=== PATIENT | female | born 1950 | race Caucasian/White ===

== ENCOUNTER 2018-10-14 23:19 | Emergency (ER) | payer MEDICARE, BC ==
[~2018-10-14] VITALS: Ht 162.6 cm; Wt 104.5 kg
[2018-10-14] MEDS ORDERED: AMLODIPINE BESY10 MG PO (23:31)
[2018-10-14] MEDS ORDERED: PRADAXA 150MG150 MG PO (23:31)
[2018-10-14] MEDS ORDERED: HYDROCHLOROTHIA1 T15 PO (23:31)
[2018-10-14] MEDS ORDERED: SOTALOL HYDROCH80 MG PO (23:32)
[2018-10-14] MEDS ORDERED: APRESOLINE 25MG25 MG PO (23:32)
[2018-10-14] MEDS ORDERED: VITAMIN C PURE500 MG PO (23:32)
[2018-10-14] MEDS ORDERED: ASPIRIN E.C. 8181 MG (23:33)
[2018-10-14] MEDS ORDERED: GOOD NEIGHBOR200 M1 PO (23:33)
[2018-10-14 23:59] LABS: HEMATOCRIT 45.7 % (37.0-47.0); HEMOGLOBIN 15.6 g/dL (12.5-16.0); MEAN CELL VOLUME 91 fl (78-100); MEAN CORPUSCULAR HEMOGLOBIN 31 pg (27-31); MEAN CORPUSCULAR HGB CONC 34 g/dL (33-37); MEAN PLATELET VOLUME 10.6 fl (7.4-10.4); PLATELET COUNT 320 K/mm3 (130-400); RED BLOOD COUNT 5.04 M/mm3 (4.10-5.30); RED CELL DISTRIBUTION WIDTH 13.6 % (11.5-14.5); WHITE BLOOD COUNT 17.5 K/mm3 (4.8-10.8)
[2018-10-15 00:12] LABS: LYMPHOCYTE 6 % (20-51); MONOCYTE 2 % (3-10); NEUTROPHILS 92 % (42-75)
[2018-10-15 00:17] LABS: ALBUMIN 4.1 g/dL (3.5-5.0); CALCIUM 9.7 mg/dL (8.4-10.2); POTASSIUM 3.5 mmol/L (3.6-5.0); TOTAL PROTEIN 6.8 g/dL (6.3-8.2)
[2018-10-15 00:18] LABS: TOTAL BILIRUBIN 0.5 mg/dL (0.2-1.3)
[2018-10-15 01:30] VITALS: BP 160/80
== END 2018-10-15 01:30 | disposition home or self-care (01) ==
LOC: ED 23:19
PROVIDERS: Nurse Practitioner Family
DX: S42.302A Unspecified fracture of shaft of humerus, left arm, initial encounter for closed fracture (principal); W01.0XXA Fall on same level from slipping, tripping and stumbling without subsequent striking against object, initial encounter; Y92.009 Unspecified place in unspecified non-institutional (private) residence as the place of occurrence of the external cause; I48.91 Unspecified atrial fibrillation; F17.210 Nicotine dependence, cigarettes, uncomplicated; I10 Essential (primary) hypertension
CPT/HCPCS: J2405; J3010; J7030

== ENCOUNTER 2018-10-20 13:12 | Inpatient (IN) | payer MEDICARE, BC ==
[~2018-10-20] VITALS: Ht 167.6 cm; Wt 100.4 kg
[~2018-10-20 13:12] MED LIST: AMLODIPINE BESY10 MG PO; APRESOLINE 25MG25 MG PO; ASPIRIN E.C. 8181 MG; GOOD NEIGHBOR200 M1 PO; HYDROCHLOROTHIA1 T15 PO; PRADAXA 150MG150 MG PO; SOTALOL HYDROCH80 MG PO; VITAMIN C PURE500 MG PO
[2018-10-20 16:12] VITALS: BP 138/72
[2018-10-20 18:46] VITALS: BP 120/56
[2018-10-21 02:56] LABS: URINE APPEARANCE CLOUDY; URINE BILIRUBIN NEGATIVE (NEGATIVE); URINE COLOR YELLOW; URINE GLUCOSE NEGATIVE (NEGATIVE); URINE KETONE NEGATIVE (NEGATIVE); URINE NITRATE NEGATIVE (NEGATIVE); URINE PROTEIN(semi-quant) TRACE mg/dL (NEGATIVE); URINE UROBILINOGEN NORMAL (NORMAL)
[2018-10-21 02:57] LABS: URINE BLOOD TRACE (NEGATIVE); URINE LEUKOCYTE ESTERASE NEGATIVE (NEGATIVE); URINE WBC 0-1 /hpf (0-3)
[2018-10-21 06:05] LABS: EOS # 0.2 (0.04-0.40); EOS % 1.6 % (1.0-5.0); HEMATOCRIT 38.1 % (37.0-47.0); HEMOGLOBIN 12.8 g/dL (12.5-16.0); LYMPH# 1.5 (1.50-4.00); MEAN CELL VOLUME 92 fl (78-100); MEAN CORPUSCULAR HEMOGLOBIN 31 pg (27-31); MEAN CORPUSCULAR HGB CONC 34 g/dL (33-37); MEAN PLATELET VOLUME 10.4 fl (7.4-10.4); NEU # 6.8 (1.40-6.50); PLATELET COUNT 312 K/mm3 (130-400); RED BLOOD COUNT 4.14 M/mm3 (4.10-5.30); RED CELL DISTRIBUTION WIDTH 13.6 % (11.5-14.5); WHITE BLOOD COUNT 9.5 K/mm3 (4.8-10.8)
[2018-10-21 06:11] VITALS: BP 125/74
[2018-10-21 06:14] LABS: ALBUMIN 3.3 g/dL (3.5-5.0); CALCIUM 8.7 mg/dL (8.4-10.2); POTASSIUM 3.7 mmol/L (3.6-5.0); TOTAL BILIRUBIN 0.8 mg/dL (0.2-1.3); TOTAL PROTEIN 5.8 g/dL (6.3-8.2)
[2018-10-21 18:41] VITALS: BP 154/58
[2018-10-22 06:32] VITALS: BP 120/65
[2018-10-22 18:59] VITALS: BP 153/72
[2018-10-23 06:27] VITALS: BP 155/75
[2018-10-23 18:26] VITALS: BP 156/92
[2018-10-24 06:22] VITALS: BP 122/76
[2018-10-24 18:48] VITALS: BP 115/71
[2018-10-25 06:23] VITALS: BP 152/62
[2018-10-25 18:35] VITALS: BP 121/67
[2018-10-26 06:14] VITALS: BP 157/90
[2018-10-26 19:00] VITALS: BP 142/61
[2018-10-27 06:34] VITALS: BP 154/78
[2018-10-27 19:00] VITALS: BP 145/75
[2018-10-28 06:23] VITALS: BP 150/93
[2018-10-28] MEDS ORDERED: IPRATROPIUM BROM3 M1 IH (17:18)
[2018-10-28] MEDS ORDERED: ACETAMINOPHEN-H1 TA2 PO (17:19)
[2018-10-28 19:00] VITALS: BP 126/53
[2018-10-29 06:14] VITALS: BP 147/60
[2018-10-29] MEDS ORDERED: MIRALAX17 GM PO (07:58)
[2018-10-29] MEDS ORDERED: SENOKOTXTRA17.2 MG PO (07:58)
[2018-10-29] MEDS ORDERED: NORCO 325 MG-51 TA1 PO (08:01)
[2018-10-29] MEDS ORDERED: ALBUTEROL2.5 MG/3 M IH (08:01)
== END 2018-10-29 09:28 | disposition home or self-care (01) | DRG 948 ==
LOC: MED/SURG 13:12
PROVIDERS: Physician Assistant; ADMIT Nurse Practitioner Primary Care
DX: R53.81 Other malaise (principal); S42.342D Displaced spiral fracture of shaft of humerus, left arm, subsequent encounter for fracture with routine healing; Z66 Do not resuscitate; F17.210 Nicotine dependence, cigarettes, uncomplicated; W18.30XD Fall on same level, unspecified, subsequent encounter; I10 Essential (primary) hypertension; I48.0 Paroxysmal atrial fibrillation; E27.8 Other specified disorders of adrenal gland

== ENCOUNTER 2019-03-08 10:02 | Emergency (ER) | payer MEDICARE, BC ==
[~2019-03-08] VITALS: Ht 162.6 cm; Wt 90.9 kg
[~2019-03-08 10:02] MED LIST changes: +ACETAMINOPHEN-H1 TA2 PO; +ALBUTEROL2.5 MG/3 M IH; +IPRATROPIUM BROM3 M1 IH; +MIRALAX17 GM PO; +NORCO 325 MG-51 TA1 PO; +SENOKOTXTRA17.2 MG PO
[2019-03-08 11:24] LABS: HEMATOCRIT 44.3 % (37.0-47.0); HEMOGLOBIN 14.9 g/dL (12.5-16.0); MEAN CELL VOLUME 87 fl (78-100); MEAN CORPUSCULAR HEMOGLOBIN 29 pg (27-31); MEAN CORPUSCULAR HGB CONC 34 g/dL (33-37); MEAN PLATELET VOLUME 10.1 fl (7.4-10.4); PLATELET COUNT 244 K/mm3 (130-400); RED BLOOD COUNT 5.07 M/mm3 (4.10-5.30); RED CELL DISTRIBUTION WIDTH 14.5 % (11.5-14.5); WHITE BLOOD COUNT 6.5 K/mm3 (4.8-10.8)
[2019-03-08 11:34] LABS: CALCIUM 8.9 mg/dL (8.4-10.2); POTASSIUM 3.7 mmol/L (3.6-5.0)
[2019-03-08 11:45] LABS: LYMPHOCYTE 24 % (20-51); MONOCYTE 11 % (3-10); NEUTROPHILS 64 % (42-75)
[2019-03-08 14:36] VITALS: BP 156/71
[2019-03-08] MEDS ORDERED: NORVASC 10MG10 MG PO (14:43)
[2019-03-08] MEDS ORDERED: POTASSIUM CHLO10 ME7 (14:43)
== END 2019-03-08 14:36 | disposition home or self-care (01) ==
LOC: ED 10:02
PROVIDERS: Family Medicine
DX: K59.00 Constipation, unspecified (principal); E87.1 Hypo-osmolality and hyponatremia; I48.91 Unspecified atrial fibrillation; I10 Essential (primary) hypertension; J44.9 Chronic obstructive pulmonary disease, unspecified; Z85.858 Personal history of malignant neoplasm of other endocrine glands

== ENCOUNTER → 2019-03-16 | Outpatient (CLI) | payer MEDICARE, BC ==
[~2019-03-16] VITALS: Ht 162.6 cm; Wt 86.8 kg
[~2019-03-16] MED LIST changes: +NORVASC 10MG10 MG PO; +POTASSIUM CHLO10 ME7
[2019-03-16 12:03] VITALS: BP 114/46
--- NOTE | 2019-03-16 13:07 | NUR ---
STOOL COLLECTED FOR O&P AND SENT WITH PT. PT WILL DROP OFF AT CLINIC LAB.
[2019-03-16 13:19] VITALS: BP 122/60
== END ==
LOC: AMSURD 11:16
DX: I95.9 Hypotension, unspecified (principal); R19.7 Diarrhea, unspecified
CPT/HCPCS: J7030

== ENCOUNTER → 2019-03-18 | Outpatient (CLI) | payer MEDICARE, BC ==
[2019-03-16 13:19] VITALS: BP 122/60
[2019-03-18 10:24] LABS: CALCIUM 9.3 mg/dL (8.4-10.2); POTASSIUM 4.4 mmol/L (3.5-5.1)
== END ==
LOC: LAB 09:48
PROVIDERS: Physician Assistant Medical
DX: E87.1 Hypo-osmolality and hyponatremia (principal)

== ENCOUNTER 2019-03-28 11:25 | Inpatient (IN) | payer MEDICARE, BC ==
[~2019-03-28] VITALS: Ht 165.1 cm; Wt 89.2 kg
[~2019-03-28 11:25] MED LIST changes: +ACETAMINOPHEN325 M1 PO; +ACIDOPHILUS PR0.5 MG PO; +AUGMENTIN 875-1 EAC1 PO; +CHILDREN'S ASPI81 M1 PO; +LISINOPRIL40 MG PO; +NATURAL VITAM1000 MG PO; +OXYCODONE HYDROC5 M1 PO; -POTASSIUM CHLO10 ME7; +POTASSIUM CHLO10 ME7 PO; +PREDNISONE 5MG5 MG PO; +ZOFRAN4 M2 PO
[2019-03-28 11:43] VITALS: BP 134/63
[2019-03-28 11:48] VITALS: BP 134/63
[2019-03-28 18:23] VITALS: BP 104/57
[2019-03-28 18:31] VITALS: BP 104/57
[2019-03-29 06:21] VITALS: BP 162/78
[2019-03-29 18:56] VITALS: BP 135/51
[2019-03-30 06:20] VITALS: BP 152/75
[2019-03-30 18:34] VITALS: BP 128/62
[2019-03-31 06:18] VITALS: BP 166/75
[2019-03-31 18:21] VITALS: BP 144/76
[2019-04-01 06:06] VITALS: BP 127/73
[2019-04-01 18:23] VITALS: BP 160/75
[2019-04-02 06:21] VITALS: BP 164/83
[2019-04-02 06:41] LABS: EOS # 0.2 (0.04-0.40); EOS % 1.8 % (1.0-5.0); HEMATOCRIT 41.1 % (37.0-47.0); HEMOGLOBIN 13.5 g/dL (12.5-16.0); LYMPH# 1.9 (1.50-4.00); MEAN CELL VOLUME 90 fl (78-100); MEAN CORPUSCULAR HEMOGLOBIN 30 pg (27-31); MEAN CORPUSCULAR HGB CONC 33 g/dL (33-37); MEAN PLATELET VOLUME 10.3 fl (7.4-10.4); MONO # 0.7 (0.20-0.80); NEU # 5.6 (1.40-6.50); PLATELET COUNT 276 K/mm3 (130-400); RED BLOOD COUNT 4.57 M/mm3 (4.10-5.30); RED CELL DISTRIBUTION WIDTH 15.1 % (11.5-14.5); WHITE BLOOD COUNT 8.4 K/mm3 (4.8-10.8)
[2019-04-02 07:01] LABS: ALBUMIN 3.4 g/dL (3.4-4.8); CALCIUM 9.4 mg/dL (8.4-10.2); POTASSIUM 3.7 mmol/L (3.5-5.1); TOTAL BILIRUBIN 0.5 mg/dL (0.2-1.2); TOTAL PROTEIN 5.9 g/dL (6.2-8.1)
[2019-04-02] MEDS ORDERED: AUGMENTIN 875-1 EAC1 PO (10:40)
[2019-04-02] MEDS ORDERED: PREDNISONE1 MG PO (12:41)
[2019-04-02] MEDS ORDERED: PREDNISONE10 MG PO (12:41)
== END 2019-04-02 13:09 | disposition home health service (06) | DRG 948 ==
LOC: MED/SURG 11:25
PROVIDERS: Physician Assistant; ADMIT Family Medicine
DX: R53.81 Other malaise (principal); K80.40 Calculus of bile duct with cholecystitis, unspecified, without obstruction; E27.40 Unspecified adrenocortical insufficiency; I48.2 Chronic atrial fibrillation; J44.9 Chronic obstructive pulmonary disease, unspecified; I10 Essential (primary) hypertension; Z79.01 Long term (current) use of anticoagulants
CPT/HCPCS: J7512

== ENCOUNTER → 2020-04-19 | Outpatient (CLI) | payer MEDICARE, BC ==
[2019-05-04 15:09] VITALS: BP 189/83
[~2020-04-19] MED LIST changes: +PREDNISONE1 MG PO; +PREDNISONE10 MG PO; +ZESTORETIC 20-1 EACH PO
== END ==
LOC: RAD 08:26
DX: E27.40 Unspecified adrenocortical insufficiency (principal)
CPT/HCPCS: Q9967

== ENCOUNTER → 2021-09-06 | Day surgery (SDC) | payer MEDICARE, BC | END | disposition home or self-care (01) | LOC: MSO 08:21 | DX: H25.12 Age-related nuclear cataract, left eye (principal); I10 Essential (primary) hypertension; J44.9 Chronic obstructive pulmonary disease, unspecified; F17.210 Nicotine dependence, cigarettes, uncomplicated; I48.91 Unspecified atrial fibrillation; Z79.82 Long term (current) use of aspirin; Z79.899 Other long term (current) drug therapy | CPT/HCPCS: 00142; J0171; J2250; V2632 ==

== ENCOUNTER 2024-11-20 17:42 | Emergency (ER) | payer MEDICARE, BC ==
[~2024-11-20] VITALS: Ht 170.2 cm; Wt 89.5 kg
[2024-11-20 18:08] LABS: HEMATOCRIT 38.4 % (37.0-47.0); HEMOGLOBIN 12.3 g/dL (12.5-16.0); MEAN CELL VOLUME 97 fl (78-100); MEAN CORPUSCULAR HEMOGLOBIN 31 pg (27-31); MEAN CORPUSCULAR HGB CONC 32 g/dL (33-37); MEAN PLATELET VOLUME 9.6 fl (7.4-10.4); PLATELET COUNT 283 K/mm3 (130-400); RED BLOOD COUNT 3.96 M/mm3 (4.10-5.30); RED CELL DISTRIBUTION WIDTH 14.5 % (11.5-14.5); WHITE BLOOD COUNT 9.8 K/mm3 (4.8-10.8)
[2024-11-20 18:16] LABS: ALBUMIN 3.7 g/dL (3.4-4.8)
[2024-11-20 18:17] LABS: CALCIUM 9.3 mg/dL (8.3-10.5)
[2024-11-20 18:18] LABS: TOTAL PROTEIN 6.6 g/dL (6.2-8.1)
[2024-11-20 18:20] LABS: TOTAL BILIRUBIN 1.3 mg/dL (0.2-1.2)
[2024-11-20 18:48] LABS: NEUTROPHILS 76 % (42-75)
[2024-11-20 18:49] LABS: LYMPHOCYTE 7 % (20-51); MONOCYTE 17 % (3-10)
[2024-11-20] MEDS ORDERED: cefTRIAXone 1 G in Water For Injection,Sterile 10 ML IV ONE (19:45)
[2024-11-20] MEDS ORDERED: Azithromycin 500 MG in NS 250 ML IV ONE (19:45)
[2024-11-20 20:40] VITALS: BP 112/62
[2024-11-21 20:27] LABS: URINE APPEARANCE SLIGHTLY CLOUDY (CLEAR); URINE COLOR DARK YELLOW (YELLOW)
[2024-11-21 20:28] LABS: URINE BILIRUBIN 1+ (NEGATIVE); URINE BLOOD TRACE-INTACT (NEGATIVE); URINE GLUCOSE NEGATIVE (NEGATIVE); URINE KETONE 1+ (NEGATIVE); URINE LEUKOCYTE ESTERASE 1+ (NEGATIVE); URINE NITRATE NEGATIVE (NEGATIVE); URINE PROTEIN(semi-quant) TRACE (NEGATIVE); URINE WBC >50 /hpf (0-3)
== END 2024-11-20 22:05 | disposition other institution (70) ==
LOC: ED 17:42
PROVIDERS: Family Medicine
DX: J18.9 Pneumonia, unspecified organism (principal); R29.6 Repeated falls; R53.1 Weakness; Z87.891 Personal history of nicotine dependence; Z79.01 Long term (current) use of anticoagulants
CPT/HCPCS: J0456; J0696; J7050

== ENCOUNTER 2024-11-20 20:01 | Inpatient (IN) | payer MEDICARE, BC ==
[~2024-11-20] VITALS: Ht 170.2 cm; Wt 88.3 kg
[2024-11-20] MEDS ORDERED: Acetaminophen 325 MG TAB PO PRN (21:15)
[2024-11-20 21:17] VITALS: BP 129/77
--- NOTE | 2024-11-20 22:05 | NUR ---
Chelsea FAUSTIN brought patient via wheelchair to room 201 with dx of frequent falls and pnuemonia. Good mayda-care done by VITALIY and rafi applied. Patient alert and oriented x 4.
[2024-11-20] MEDS ORDERED: methylPREDNISolone Sod Succ 125 MG/2 ML VIAL IV ONE (22:15)
[2024-11-20] MEDS ORDERED: Albuterol 0.083% Nebule (2.5 MG/3 ML) IH SCH (22:24)
[2024-11-20] MEDS ORDERED: Polyethylene Glycol 3350 Powder 17 GM PACKET PO PRN (22:30)
[2024-11-20 23:00] VITALS: BP 123/70
--- NOTE | 2024-11-20 23:00 | NUR ---
Hiren CATALAN notified of patients temp of 100.7 and time tylenol given earlier. Patient has excoriation/yeast under breasts, panus and groin creases and all cleansed patted dry and nystatin powder applied- Hiren CATALAN ordered when above reported.
[2024-11-20] MEDS ORDERED: Miconazole 2% Topical Powder BOTTLE TP SCH (23:06)
[2024-11-21 03:54] VITALS: BP 138/66
--- NOTE | 2024-11-21 04:48 | NUR ---
Patient has been resting with eyes closed.
--- NOTE | 2024-11-21 06:10 | NUR ---
Patient reports she slept off and on.
[2024-11-21 07:31] VITALS: BP 123/57
[2024-11-21 08:10] LABS: MEAN CELL VOLUME 96 fl (78-100); MEAN CORPUSCULAR HEMOGLOBIN 31 pg (27-31); MEAN CORPUSCULAR HGB CONC 32 g/dL (33-37); MEAN PLATELET VOLUME 10.9 fl (7.4-10.4); PLATELET COUNT 245 K/mm3 (130-400); RED BLOOD COUNT 3.85 M/mm3 (4.10-5.30); RED CELL DISTRIBUTION WIDTH 14.3 % (11.5-14.5); WHITE BLOOD COUNT 8.6 K/mm3 (4.8-10.8)
[2024-11-21 08:22] LABS: ALBUMIN 3.3 g/dL (3.4-4.8)
[2024-11-21 08:23] LABS: CALCIUM 8.8 mg/dL (8.3-10.5)
[2024-11-21 08:24] LABS: TOTAL PROTEIN 6.2 g/dL (6.2-8.1)
[2024-11-21 08:26] LABS: TOTAL BILIRUBIN 0.7 mg/dL (0.2-1.2)
[2024-11-21 08:59] LABS: BAND 4 % (0-10); LYMPHOCYTE 1 % (20-51); NEUTROPHILS 95 % (42-75)
[2024-11-21] MEDS ORDERED: hydrALAZINE 25 MG TAB PO SCH (09:00)
[2024-11-21] MEDS ORDERED: amLODIPine 5 MG TAB PO SCH (09:00)
[2024-11-21] MEDS ORDERED: Lisinopril 20 MG TAB PO SCH (09:00)
[2024-11-21] MEDS ORDERED: hydroCHLOROthiazide 25 MG TAB PO SCH (09:00)
[2024-11-21 11:21] VITALS: BP 110/62
[2024-11-21 15:33] VITALS: BP 99/63
[2024-11-21 19:00] VITALS: BP 102/67
[2024-11-21] MEDS ORDERED: cefTRIAXone 1 G in Water For Injection,Sterile 10 ML IV SCH (20:00)
--- NOTE | 2024-11-21 20:00 | NUR ---
Patient assisted up to the bathroom after good mayda-care done and UA obtained. 1 assist with walker and has stooped posture. Assisted with pullup down and up. Urine is alysa slightly hazy.
[2024-11-21] MEDS ORDERED: Azithromycin 500 MG in NS 250 ML IV SCH (21:00)
[2024-11-21] MEDS ORDERED: Acetaminophen 325 MG TAB PO SCH (21:00)
--- NOTE | 2024-11-21 21:00 | NUR ---
HS meds all reviewed and given. Alert and oriented x 4. Watching TV. Under breasts and groin creases cleansed, dried and nystatin powder applied. FOB elevated. No couphing noted at this time. See assessment. Respirations even nonlabored.
[2024-11-21 23:00] VITALS: BP 107/60
--- NOTE | 2024-11-22 02:22 | NUR ---
UA results obtained from lab and given to Dr. Suazo.
[2024-11-22 03:00] VITALS: BP 107/53
--- NOTE | 2024-11-22 03:00 | NUR ---
Per Dr. Suazo no urine culture needed (patient has been on IV ABT).
--- NOTE | 2024-11-22 03:38 | NUR ---
Patient has been resting with eyes closed. Awakened for vitals.
[2024-11-22 07:00] VITALS: BP 107/58
[2024-11-22] MEDS ORDERED: predniSONE 20 MG TAB PO SCH (09:00)
[2024-11-22 11:54] VITALS: BP 117/82
--- NOTE | 2024-11-22 13:22 | NUR ---
THIS NURSE LISTEN TO PTS LUNGS PRIOR TO BREATHING TX. PTS LUNGS PRESENT WITH RHONCI THROUGHOUT.
--- NOTE | 2024-11-22 13:27 | NUR ---
0715 PT VISITED BY RHIANNON WHITE PT IS TIRED FROM LAST EVENING, DIFFICULTY BREATHING. PROVIDER ORDERED MUCINEX FOR THE PT, AND A FLAPPER VALVE. 0930 PT UP TO RESTROOM TO VOID. 1300 THIS NURSE IN ROOM WITH PT, BREATHING TREATMENT TAKING PLACE.
[2024-11-22 15:29] VITALS: BP 112/64
--- NOTE | 2024-11-22 18:08 | NUR ---
1642 THIS RN ADMINISTERED TYLENOL AND BREATHING TX. PT REPORTED LEFT RIBCAGE PAIN. THIS RN PROVIDED A WARM BLANKET, AND A HEAT PACK.
[2024-11-22 19:00] VITALS: BP 95/42
--- NOTE | 2024-11-22 20:00 | NUR ---
Calista PALACIOS notified pt HR 46 and BP 95/42 and printed all vital signs from admission for her to view HR and BP trending down. Reviewed HS meds of sotalol, zestril, hydralazine that affect HR and BP. This nurse reviewed meds with patient. Patient called her and read off all home meds. Home med list given to Calista PALACIOS and revises made per home med list.
--- NOTE | 2024-11-22 21:00 | NUR ---
Patient just returned from the bathroom. Patient has dyspnea walking to and from bathroom. HS meds all reviewed and given. Reports left rib cage pain 9/10 with couph moderate pain after. Warm packs applied to left side. RT treatment given. Respirations less labored once at rest. 02 on 2lpnc. SCD's on. (tylenol as scheduled given).
[2024-11-22] MEDS ORDERED: AMIODARONE200 MG PO (21:12)
[2024-11-22] MEDS ORDERED: ACETAMINOPHEN-H1 TA2 PO (21:13)
[2024-11-22] MEDS ORDERED: Albuterol 0.083% Nebule (2.5 MG/3 ML) IH PRN (21:15)
[2024-11-22] MEDS ORDERED: LOSARTAN POTASS50 M1 PO (21:16)
[2024-11-22] MEDS ORDERED: PREDNISONE 5MG5 MG PO ×2 (21:17→22:51)
[2024-11-22] MEDS ORDERED: RAYOS5 MG PO (22:58)
[2024-11-22 23:00] VITALS: BP 106/65
[2024-11-22] MEDS ORDERED: Lidocaine 4% Topical Patch TP SCH (23:26)
--- NOTE | 2024-11-22 23:26 | NUR ---
Patient complaints of right lower back pain. Noted she'd had norco prescribed to her recently from [facility] pharmacy. States she doesn't want to take a strong pain med that's addicting. Reassurance given. Explained would ask Calista PALACIOS. Patient declined at this time. Calista notified and new order for lidocaine patch obtained and applied to right lower back.
--- NOTE | 2024-11-23 01:22 | NUR ---
New 1 time order for tylenol received per Calista PALACIOS and given. Warm pack to mid upper back applied and patient repositioned.
[2024-11-23] MEDS ORDERED: Acetaminophen 325 MG TAB PO ONE (01:30)
--- NOTE | 2024-11-23 03:30 | NUR ---
Patient rests with eyes closed.
[2024-11-23 03:37] VITALS: BP 133/70
--- NOTE | 2024-11-23 06:38 | NUR ---
Patient awakened for med. States she did sleep after midnight.
[2024-11-23 07:00] VITALS: BP 149/64
[2024-11-23 08:57] LABS: BASO # 0.01 K/mm3 (0.02-0.10); EOS # 0.44 K/mm3 (0.04-0.40); EOS % 4.2 % (1.0-5.0); HEMOGLOBIN 12.7 g/dL (12.5-16.0); LYMPH# 1.11 K/mm3 (1.50-4.00); MEAN CELL VOLUME 95 fl (78-100); MEAN CORPUSCULAR HEMOGLOBIN 31 pg (27-31); MEAN CORPUSCULAR HGB CONC 33 g/dL (33-37); MEAN PLATELET VOLUME 9.9 fl (7.4-10.4); MONO # 0.83 K/mm3 (0.20-0.80); NEU # 7.96 K/mm3 (1.40-6.50); PLATELET COUNT 327 K/mm3 (130-400); WHITE BLOOD COUNT 10.4 K/mm3 (4.8-10.8)
[2024-11-23] MEDS ORDERED: Losartan 50 MG TAB PO SCH (09:00)
[2024-11-23 09:04] LABS: ALBUMIN 3.5 g/dL (3.4-4.8)
[2024-11-23 09:07] LABS: TOTAL PROTEIN 6.3 g/dL (6.2-8.1)
[2024-11-23 09:08] LABS: TOTAL BILIRUBIN 0.5 mg/dL (0.2-1.2)
[2024-11-23] MEDS ORDERED: methylPREDNISolone Sod Succ 125 MG/2 ML VIAL IV SCH (10:20)
--- NOTE | 2024-11-23 10:50 | NUR ---
PT ALERT AND ORIENTED X4, PT REPORTING 2/10 PAIN PRIMARILY TO LEFT SIDE RIBS. PT RESTING IN BED FOR ASSESSMENT AND MEDICATIONS DELIVERED. PT ON OXYGEN VIA NC, PT GIVEN BREAHTING TREATMENT. THERAPY TEAM IN TO ASSESS PT FOR POTENTIAL SWING BED. PT NOW RESTING IN BED WITH CALL LIGHT IN REACH AND BED ALARM ON
[2024-11-23 11:12] VITALS: BP 115/66
[2024-11-23 15:20] VITALS: BP 120/61
--- NOTE | 2024-11-23 15:23 | NUR ---
PT RESTING IN BED, NO NEEDS EXPRESSED
[2024-11-23 19:00] VITALS: BP 98/59
[2024-11-23] MEDS ORDERED: Amiodarone 200 MG TAB PO SCH (21:00)
[2024-11-23] MEDS ORDERED: Lidocaine 4% Topical Patch TP SCH (21:00)
[2024-11-23 22:55] VITALS: BP 122/60
[2024-11-24 02:34] VITALS: BP 111/64
[2024-11-24 07:00] VITALS: BP 170/67
--- NOTE | 2024-11-24 09:00 | NUR ---
Pt sitting up in recliner, is Ox4, denies pain, VSS. Continues on 2L O2 via NC, sats mid 90's. Noted to have exp. wheezes to [place], R lung all lobes clear, diminished.
[2024-11-24 11:40] VITALS: BP 121/68
[2024-11-24 15:34] VITALS: BP 131/65
[2024-11-24 19:36] VITALS: BP 107/61
[2024-11-24 23:12] VITALS: BP 110/63
[2024-11-25 03:06] VITALS: BP 132/84
[2024-11-25 06:21] LABS: ALBUMIN 3.3 g/dL (3.4-4.8)
[2024-11-25 06:23] LABS: CALCIUM 8.7 mg/dL (8.3-10.5)
[2024-11-25 06:24] LABS: TOTAL PROTEIN 5.8 g/dL (6.2-8.1)
[2024-11-25 06:26] LABS: TOTAL BILIRUBIN 0.3 mg/dL (0.2-1.2)
[2024-11-25 06:43] LABS: BASO # 0.01 K/mm3 (0.02-0.10); HEMATOCRIT 36.8 % (37.0-47.0); HEMOGLOBIN 11.8 g/dL (12.5-16.0); LYMPH# 0.61 K/mm3 (1.50-4.00); MEAN CELL VOLUME 97 fl (78-100); MEAN CORPUSCULAR HEMOGLOBIN 31 pg (27-31); MEAN CORPUSCULAR HGB CONC 32 g/dL (33-37); MEAN PLATELET VOLUME 10.8 fl (7.4-10.4); MONO # 0.81 K/mm3 (0.20-0.80); PLATELET COUNT 295 K/mm3 (130-400); RED CELL DISTRIBUTION WIDTH 14.1 % (11.5-14.5); WHITE BLOOD COUNT 10.5 K/mm3 (4.8-10.8)
[2024-11-25 07:00] VITALS: BP 170/71
[2024-11-25 11:05] VITALS: BP 152/79
== END 2024-11-25 15:00 | disposition swing bed (61) | DRG 192 ==
LOC: MED/SURG 20:01
PROVIDERS: Nurse Practitioner; Physician Assistant; ADMIT Family Medicine
DX: J44.1 Chronic obstructive pulmonary disease with (acute) exacerbation (principal); W19.XXXA Unspecified fall, initial encounter; R53.1 Weakness; R09.02 Hypoxemia; I10 Essential (primary) hypertension
CPT/HCPCS: J0456; J0696; J2919; J7050; J7512

== ENCOUNTER 2024-11-25 12:43 | Inpatient (IN) | payer MEDICARE, BC ==
[~2024-11-25] VITALS: Ht 170.2 cm; Wt 88.7 kg
[~2024-11-25 12:43] MED LIST changes: +AMIODARONE200 MG PO; +LOSARTAN POTASS50 M1 PO; +RAYOS5 MG PO
[2024-11-25 15:00] VITALS: BP 143/71
[2024-11-25] MEDS ORDERED: Docusate Sodium 100 MG CAP PO PRN (16:00)
[2024-11-25] MEDS ORDERED: Acetaminophen 325 MG TAB PO PRN (16:00)
[2024-11-25] MEDS ORDERED: Polyethylene Glycol 3350 Powder 17 GM PACKET PO PRN (16:00)
[2024-11-25] MEDS ORDERED: Albuterol/Ipratropium 3 MG-0.5 MG/3 ML Neb Soln IH PRN (16:45)
[2024-11-25] MEDS ORDERED: Albuterol 0.083% Nebule (2.5 MG/3 ML) IH PRN (16:45)
[2024-11-25 19:45] VITALS: BP 125/59
[2024-11-25] MEDS ORDERED: cefTRIAXone 1 G in Water For Injection,Sterile 10 ML IV SCH (21:00)
[2024-11-25] MEDS ORDERED: Amiodarone 200 MG TAB PO SCH (21:00)
[2024-11-25] MEDS ORDERED: Lidocaine 4% Topical Patch TP SCH (21:00)
[2024-11-25] MEDS ORDERED: Miconazole 2% Topical Powder BOTTLE TP ONE (22:00)
[2024-11-26 07:30] VITALS: BP 151/73
[2024-11-26] MEDS ORDERED: amLODIPine 5 MG TAB PO SCH (09:00)
[2024-11-26] MEDS ORDERED: Miconazole 2% Topical Powder BOTTLE TP SCH (09:00)
[2024-11-26] MEDS ORDERED: methylPREDNISolone Sod Succ 125 MG/2 ML VIAL IV SCH (09:00)
[2024-11-26] MEDS ORDERED: Losartan 50 MG TAB PO SCH (09:00)
[2024-11-26 19:00] VITALS: BP 154/68
[2024-11-27 06:09] LABS: BASO # 0.01 K/mm3 (0.02-0.10); HEMATOCRIT 36.3 % (37.0-47.0); HEMOGLOBIN 11.7 g/dL (12.5-16.0); LYMPH# 0.63 K/mm3 (1.50-4.00); MEAN CELL VOLUME 96 fl (78-100); MEAN CORPUSCULAR HEMOGLOBIN 31 pg (27-31); MEAN CORPUSCULAR HGB CONC 32 g/dL (33-37); MEAN PLATELET VOLUME 10.3 fl (7.4-10.4); MONO # 0.63 K/mm3 (0.20-0.80); NEU # 8.57 K/mm3 (1.40-6.50); PLATELET COUNT 289 K/mm3 (130-400); RED BLOOD COUNT 3.79 M/mm3 (4.10-5.30); WHITE BLOOD COUNT 9.9 K/mm3 (4.8-10.8)
[2024-11-27 06:14] LABS: ALBUMIN 3.1 g/dL (3.4-4.8)
[2024-11-27 06:15] LABS: CALCIUM 8.4 mg/dL (8.3-10.5)
[2024-11-27 06:16] LABS: TOTAL PROTEIN 5.5 g/dL (6.2-8.1)
[2024-11-27 06:18] LABS: TOTAL BILIRUBIN 0.4 mg/dL (0.2-1.2)
[2024-11-27 07:00] VITALS: BP 159/66
[2024-11-27] MEDS ORDERED: predniSONE 20 MG TAB PO SCH (10:45)
[2024-11-27 19:00] VITALS: BP 120/62
[2024-11-27] MEDS ORDERED: Cefdinir 300 MG CAP PO SCH (21:00)
[2024-11-28 07:00] VITALS: BP 152/55
[2024-11-28] MEDS ORDERED: predniSONE 1 MG TAB PO SCH (09:00)
[2024-11-28] MEDS ORDERED: predniSONE 10 MG TAB PO SCH (09:00)
[2024-11-28 19:00] VITALS: BP 121/53
[2024-11-29 07:00] VITALS: BP 126/76
[2024-11-29] MEDS ORDERED: predniSONE 1 MG TAB PO SCH ×2 (17:00→21:00)
[2024-11-29 19:00] VITALS: BP 111/61
[2024-11-30 07:15] VITALS: BP 171/74
[2024-11-30 16:34] VITALS: BP 134/71
[2024-11-30 22:02] VITALS: BP 116/63
[2024-12-01 07:00] VITALS: BP 153/64
[2024-12-01 19:00] VITALS: BP 132/53
[2024-12-02 06:10] LABS: BASO # 0.02 K/mm3 (0.02-0.10); EOS # 0.22 K/mm3 (0.04-0.40); EOS % 2.2 % (1.0-5.0); HEMATOCRIT 37.3 % (37.0-47.0); HEMOGLOBIN 11.8 g/dL (12.5-16.0); LYMPH# 1.24 K/mm3 (1.50-4.00); MEAN CELL VOLUME 97 fl (78-100); MEAN CORPUSCULAR HEMOGLOBIN 31 pg (27-31); MEAN CORPUSCULAR HGB CONC 32 g/dL (33-37); MEAN PLATELET VOLUME 10.2 fl (7.4-10.4); MONO # 0.98 K/mm3 (0.20-0.80); NEU # 7.41 K/mm3 (1.40-6.50); PLATELET COUNT 245 K/mm3 (130-400); RED BLOOD COUNT 3.83 M/mm3 (4.10-5.30); RED CELL DISTRIBUTION WIDTH 14.3 % (11.5-14.5); WHITE BLOOD COUNT 9.9 K/mm3 (4.8-10.8)
[2024-12-02 07:10] VITALS: BP 116/62
[2024-12-02 19:00] VITALS: BP 105/66
[2024-12-03 07:15] VITALS: BP 128/65
[2024-12-03 19:00] VITALS: BP 111/53
[2024-12-04 08:15] VITALS: BP 137/56
[2024-12-04 19:00] VITALS: BP 146/67
[2024-12-05 07:00] VITALS: BP 114/66
[2024-12-05 19:00] VITALS: BP 131/77
[2024-12-06 07:00] VITALS: BP 146/61
[2024-12-06 19:00] VITALS: BP 121/52
[2024-12-07 07:00] VITALS: BP 118/64
[2024-12-07 19:28] VITALS: BP 115/63
[2024-12-08 07:20] VITALS: BP 138/73
[2024-12-08 19:00] VITALS: BP 136/60
[2024-12-09 06:12] LABS: BASO # 0.02 K/mm3 (0.02-0.10); EOS # 0.14 K/mm3 (0.04-0.40); EOS % 2.2 % (1.0-5.0); HEMATOCRIT 37.8 % (37.0-47.0); HEMOGLOBIN 11.8 g/dL (12.5-16.0); LYMPH# 0.98 K/mm3 (1.50-4.00); MEAN CELL VOLUME 99 fl (78-100); MEAN CORPUSCULAR HEMOGLOBIN 31 pg (27-31); MEAN CORPUSCULAR HGB CONC 31 g/dL (33-37); MEAN PLATELET VOLUME 9.9 fl (7.4-10.4); MONO # 0.59 K/mm3 (0.20-0.80); PLATELET COUNT 211 K/mm3 (130-400); RED BLOOD COUNT 3.83 M/mm3 (4.10-5.30); WHITE BLOOD COUNT 6.3 K/mm3 (4.8-10.8)
[2024-12-09 06:29] LABS: ALBUMIN 3.4 g/dL (3.4-4.8)
[2024-12-09 06:30] LABS: CALCIUM 8.7 mg/dL (8.3-10.5)
[2024-12-09 06:32] LABS: TOTAL PROTEIN 6.2 g/dL (6.2-8.1)
[2024-12-09 06:33] LABS: TOTAL BILIRUBIN 0.7 mg/dL (0.2-1.2)
[2024-12-09 07:15] VITALS: BP 164/73
[2024-12-09 19:00] VITALS: BP 124/65
[2024-12-10 07:15] VITALS: BP 125/69
== END 2024-12-10 15:42 | disposition home health service (06) | DRG 190 ==
LOC: MED/SURG 12:43
PROVIDERS: Family Medicine; ADMIT Family Medicine
DX: J44.1 Chronic obstructive pulmonary disease with (acute) exacerbation (principal); J18.9 Pneumonia, unspecified organism; Z91.81 History of falling; R53.1 Weakness; R09.02 Hypoxemia; I10 Essential (primary) hypertension; I48.91 Unspecified atrial fibrillation; Z79.01 Long term (current) use of anticoagulants; Z86.73 Personal history of transient ischemic attack (TIA), and cerebral infarction without residual deficits; Z87.891 Personal history of nicotine dependence; Z79.52 Long term (current) use of systemic steroids; Z79.899 Other long term (current) drug therapy; Z60.9 Problem related to social environment, unspecified
CPT/HCPCS: J0696; J2919; J7512

== ENCOUNTER 2024-12-25 08:36 | Emergency (ER) | payer MEDICARE, BC ==
[~2024-12-25] VITALS: Ht 167.6 cm; Wt 85.0 kg
[2024-12-25 08:36] VITALS: BP 144/104
[2024-12-25 10:05] LABS: URINE APPEARANCE CLOUDY (CLEAR); URINE BILIRUBIN 1+ (NEGATIVE); URINE BLOOD 2+ (NEGATIVE); URINE COLOR DARK YELLOW (YELLOW); URINE GLUCOSE NEGATIVE (NEGATIVE); URINE KETONE TRACE (NEGATIVE); URINE LEUKOCYTE ESTERASE NEGATIVE (NEGATIVE); URINE NITRATE NEGATIVE (NEGATIVE); URINE PROTEIN(semi-quant) 1+ (NEGATIVE); URINE WBC 0-1 /hpf (0-3)
[2024-12-25 10:06] LABS: URINE MUCUS PRESENT (NOT PRESENT)
[2024-12-25] MEDS ORDERED: cefTRIAXone 1 G,Lidocaine 2.1 ML IM ONE (10:30)
[2024-12-25 12:07] LABS: HEMATOCRIT 37.8 % (37.0-47.0); HEMOGLOBIN 12.4 g/dL (12.5-16.0); MEAN CELL VOLUME 96 fl (78-100); MEAN CORPUSCULAR HEMOGLOBIN 32 pg (27-31); MEAN CORPUSCULAR HGB CONC 33 g/dL (33-37); MEAN PLATELET VOLUME 9.6 fl (7.4-10.4); PLATELET COUNT 214 K/mm3 (130-400); RED BLOOD COUNT 3.94 M/mm3 (4.10-5.30); RED CELL DISTRIBUTION WIDTH 14.9 % (11.5-14.5); WHITE BLOOD COUNT 7.2 K/mm3 (4.8-10.8)
[2024-12-25 12:14] LABS: ALBUMIN 3.6 g/dL (3.4-4.8)
[2024-12-25 12:16] LABS: CALCIUM 8.8 mg/dL (8.3-10.5)
[2024-12-25 12:17] LABS: TOTAL PROTEIN 6.4 g/dL (6.2-8.1)
[2024-12-25 12:19] LABS: TOTAL BILIRUBIN 0.6 mg/dL (0.2-1.2)
[2024-12-25 12:28] LABS: BAND 2 % (0-10); LYMPHOCYTE 7 % (20-51); NEUTROPHILS 74 % (42-75)
[2024-12-25 12:29] LABS: MONOCYTE 16 % (3-10)
[2024-12-25 12:35] LABS: D-DIMER 0.79 mg/L FEU (0.15-0.50)
[2024-12-25] MEDS ORDERED: NS IV SCH (13:15)
[2024-12-25] MEDS ORDERED: ACYCLOVIR IV SCH (13:15)
[2024-12-25] MEDS ORDERED: Iohexol 350 - 100 ML VIAL IV ONE (14:13)
[2024-12-25] MEDS ORDERED: NS 100 ML IV SCH (14:14)
== END 2024-12-25 14:58 | disposition other institution (70) ==
LOC: ED 08:36
PROVIDERS: Physician Assistant
DX: M25.562 Pain in left knee (principal); M25.561 Pain in right knee; N39.0 Urinary tract infection, site not specified; R53.1 Weakness; W01.0XXA Fall on same level from slipping, tripping and stumbling without subsequent striking against object, initial encounter; Y92.091 Bathroom in other non-institutional residence as the place of occurrence of the external cause
CPT/HCPCS: J0696; Q9967

== ENCOUNTER 2024-12-25 13:12 | Inpatient (IN) | payer MEDICARE, BC ==
[~2024-12-25] VITALS: Ht 170.2 cm; Wt 86.5 kg
[2024-12-25 14:00] VITALS: BP 104/60
[2024-12-25] MEDS ORDERED: Famotidine 20 MG TAB PO PRN (15:30)
[2024-12-25] MEDS ORDERED: Docusate Sodium 100 MG CAP PO PRN (15:30)
[2024-12-25] MEDS ORDERED: Acetaminophen 325 MG TAB PO PRN (15:30)
[2024-12-25] MEDS ORDERED: Bisacodyl 5 MG TAB PO PRN (15:30)
[2024-12-25] MEDS ORDERED: Polyethylene Glycol 3350 Powder 17 GM PACKET PO PRN (15:30)
[2024-12-25] MEDS ORDERED: Albuterol/Ipratropium 3 MG-0.5 MG/3 ML Neb Soln IH SCH (15:57)
[2024-12-25] MEDS ORDERED: Albuterol 0.083% Nebule (2.5 MG/3 ML) IH PRN (16:00)
[2024-12-25 16:08] VITALS: BP 121/68
[2024-12-25] MEDS ORDERED: hydrOXYzine HCl 25 MG TAB PO PRN (17:00)
[2024-12-25 17:48] LABS: RSV RAPID MOLECULAR IN HOUSE NEGATIVE (NEGATIVE)
--- NOTE | 2024-12-25 18:26 | NUR ---
PT. GIVEN ZOFRAN FOR NAUSEA WITH SUPPER. LAB CALLS WITH POSITIVE FLU Aida, ALAYNA FREIRE NOTIFIED. PT. REMAINS ON O2 AT 2L PER NC. PUREWICK IN PLACE PT. STATES HER LEGS ARE TOO WEAK TO WALK AT THIS TIME.
--- NOTE | 2024-12-25 19:49 | NUR ---
PT RESTING IN BED. PT STATES SHE IS FATIGUED. LUNGS DIM THROUGHOUT. ABD SOFT AND NON TENDER. SKIN WARM AND DRY. NO WOUNDS NOTED. O2 ON AT 2L/NC. DRY COUGH NOTED. PT WEAK NEEDING X2 ASSIST WITH STANDING.
[2024-12-25 20:05] VITALS: BP 127/61
[2024-12-25] MEDS ORDERED: Miconazole 2% Topical Powder BOTTLE TP SCH (21:00)
[2024-12-25] MEDS ORDERED: Oseltamivir 75 MG CAP PO SCH (21:00)
[2024-12-25] MEDS ORDERED: Amiodarone 200 MG TAB PO SCH (21:00)
[2024-12-26 07:02] VITALS: BP 110/50
[2024-12-26 07:07] LABS: BASO # 0.02 K/mm3 (0.02-0.10); EOS # 0.03 K/mm3 (0.04-0.40); EOS % 0.4 % (1.0-5.0); HEMOGLOBIN 12.2 g/dL (12.5-16.0); LYMPH# 0.81 K/mm3 (1.50-4.00); MEAN CELL VOLUME 95 fl (78-100); MEAN CORPUSCULAR HEMOGLOBIN 32 pg (27-31); MEAN CORPUSCULAR HGB CONC 34 g/dL (33-37); MEAN PLATELET VOLUME 9.6 fl (7.4-10.4); MONO # 0.89 K/mm3 (0.20-0.80); NEU # 5.42 K/mm3 (1.40-6.50); PLATELET COUNT 186 K/mm3 (130-400); RED BLOOD COUNT 3.78 M/mm3 (4.10-5.30); RED CELL DISTRIBUTION WIDTH 15.1 % (11.5-14.5); WHITE BLOOD COUNT 7.2 K/mm3 (4.8-10.8)
[2024-12-26 07:21] LABS: ALBUMIN 3.3 g/dL (3.4-4.8)
[2024-12-26 07:23] LABS: CALCIUM 8.5 mg/dL (8.3-10.5)
[2024-12-26 07:26] LABS: TOTAL BILIRUBIN 0.7 mg/dL (0.2-1.2)
[2024-12-26] MEDS ORDERED: Losartan 50 MG TAB PO SCH (09:00)
[2024-12-26] MEDS ORDERED: amLODIPine 5 MG TAB PO SCH (09:00)
--- NOTE | 2024-12-26 09:00 | NUR ---
Pt O2 taken by this nurse, O2 was bouncing between 88%-91% hovering mainly around 88-89% O2 increased to 3.5L from 3L pt O2 was getting up to and hovering about 91%. Montiored throughout the day, left pt at 3.5L.
[2024-12-26 19:00] VITALS: BP 114/58
--- NOTE | 2024-12-26 19:11 | NUR ---
RECEIVED REPORT FROM RAMIN GUZMAN
--- NOTE | 2024-12-26 21:00 | NUR ---
PATIENT REPORTS THAT SHE HAS NOT FELT LIKE GETTING OUT OF BED TODAY. REPORTS PAIN IN LEGS 8/10 THAT SHE IS TAKING PRN APAP FOR. O2 PER NC AT 5L. BR TX DONE. LUNGS WITH COARSE SOUNDS, BREATHING UNLABORED. BS X 4 BUT REPORTS NO BM X 2 DAYS. DECLINED LAXATIVE. A&O X 4. CALL LIGHT IN REACH
--- NOTE | 2024-12-27 00:38 | NUR ---
PATIENT RESTING QUIETLY IN BED. BREATHING UNLABORED ON O2. CALL LIGHT IN REACH
[2024-12-27 07:00] VITALS: BP 100/47
[2024-12-27] MEDS ORDERED: predniSONE 10 MG TAB PO SCH (09:00)
[2024-12-27] MEDS ORDERED: cefTRIAXone 1 G in Water For Injection,Sterile 10 ML IV SCH (09:00)
[2024-12-27 10:00] LABS: BASO # 0.01 K/mm3 (0.02-0.10); EOS # 0.09 K/mm3 (0.04-0.40); EOS % 1.3 % (1.0-5.0); HEMATOCRIT 37.5 % (37.0-47.0); HEMOGLOBIN 12.3 g/dL (12.5-16.0); LYMPH# 0.83 K/mm3 (1.50-4.00); MEAN CELL VOLUME 95 fl (78-100); MEAN CORPUSCULAR HEMOGLOBIN 31 pg (27-31); MEAN CORPUSCULAR HGB CONC 33 g/dL (33-37); MEAN PLATELET VOLUME 10.3 fl (7.4-10.4); MONO # 0.75 K/mm3 (0.20-0.80); NEU # 5.06 K/mm3 (1.40-6.50); PLATELET COUNT 191 K/mm3 (130-400); RED BLOOD COUNT 3.96 M/mm3 (4.10-5.30); RED CELL DISTRIBUTION WIDTH 15.1 % (11.5-14.5); WHITE BLOOD COUNT 6.8 K/mm3 (4.8-10.8)
[2024-12-27 10:01] LABS: CALCIUM 8.3 mg/dL (8.3-10.5)
[2024-12-27 10:02] LABS: TOTAL PROTEIN 5.7 g/dL (6.2-8.1)
[2024-12-27 10:04] LABS: TOTAL BILIRUBIN 0.6 mg/dL (0.2-1.2)
[2024-12-27] MEDS ORDERED: Azithromycin 250 MG TAB PO SCH (10:30)
[2024-12-27] MEDS ORDERED: Sennosides/Docusate 8.6-50 MG TAB PO SCH (10:49)
[2024-12-27] MEDS ORDERED: predniSONE 1 MG TAB PO SCH (17:00)
--- NOTE | 2024-12-27 17:24 | NUR ---
PT IS REPORTING NAUSEA.
--- NOTE | 2024-12-27 18:32 | NUR ---
PT IS ON 4.5 L OF O2 VIA NC. PT TENDS TO SLIDE DOWN INTO BED. THIS NURSE ENCOURAGED PT TO SIT UP IN THE CHAIR FOR MEALS. PT STATED "MY LEGS GIVE OUT, I'M TOO AFRAID TO DO THAT." PT IS PLEASANT AND USED HER IS, SHE CAN REACH 1000ML ON THE IS. PT IS USING A PUREWICK, SHE IS ON TELE AND ON O2 MONITORING. PT HAS NOT HAD A BM DURING THIS SHIFT. PT HAS AN IV PLACED ON HER RIGHT MID FOREARM.
[2024-12-27 19:00] VITALS: BP 109/47
[2024-12-27] MEDS ORDERED: Polyethylene Glycol 3350 Powder 17 GM PACKET PO SCH (21:00)
--- NOTE | 2024-12-27 22:30 | NUR ---
PT RESTING COMFORTABLY IN BED. DENIES PAIN. STATES SHE IS STILL A BIT SHORT OF BREATH AND EXPRESSED THAT SHE HAS NOT HAS A BM IN A WHILE BUT DENIES N/V. COARSE CRACKLES AND WET PRODUCTIVE COUGH NOTED. WATCHING TV. [employer] 15.
[2024-12-28 07:00] VITALS: BP 115/63
[2024-12-28 07:23] LABS: BASO # 0.02 K/mm3 (0.02-0.10); EOS # 0.06 K/mm3 (0.04-0.40); EOS % 1.1 % (1.0-5.0); HEMATOCRIT 35.6 % (37.0-47.0); HEMOGLOBIN 11.7 g/dL (12.5-16.0); LYMPH# 0.74 K/mm3 (1.50-4.00); MEAN CELL VOLUME 93 fl (78-100); MEAN CORPUSCULAR HEMOGLOBIN 31 pg (27-31); MEAN CORPUSCULAR HGB CONC 33 g/dL (33-37); MONO # 0.56 K/mm3 (0.20-0.80); NEU # 4.28 K/mm3 (1.40-6.50); PLATELET COUNT 203 K/mm3 (130-400); RED BLOOD COUNT 3.82 M/mm3 (4.10-5.30); RED CELL DISTRIBUTION WIDTH 14.8 % (11.5-14.5); WHITE BLOOD COUNT 5.7 K/mm3 (4.8-10.8)
[2024-12-28 07:33] LABS: CALCIUM 8.6 mg/dL (8.3-10.5)
[2024-12-28 07:34] LABS: TOTAL PROTEIN 5.7 g/dL (6.2-8.1)
[2024-12-28 07:36] LABS: TOTAL BILIRUBIN 0.5 mg/dL (0.2-1.2)
[2024-12-28 10:14] VITALS: BP 99/47
--- NOTE | 2024-12-28 12:46 | NUR ---
Pt status changed to acute from SWB.
[2025-01-05] MEDS ORDERED: PAIN RELIEF EX500 MG PO (16:51)
[2025-01-05] MEDS ORDERED: ALBUTEROL S5 MG/1 ML IH (18:29)
[2025-01-05] MEDS ORDERED: [UNRECOGNIZED DRUG - OTHER] IH (18:30)
[2025-01-05] MEDS ORDERED: PULMICORT0.5 MG/2 M IH (18:32)
[2025-01-05] MEDS ORDERED: PERFOROMIS20 MCG/21 IH (18:34)
[2025-01-05] MEDS ORDERED: TAMIFLU 75MG75 MG PO (18:35)
[2025-01-05] MEDS ORDERED: PROTONIX TR40 M1 PO (18:36)
[2025-01-05] MEDS ORDERED: DEXAMETHASONE6 M1 PO (18:38)
== END 2024-12-28 14:00 | disposition short-term general hospital (02) | DRG 194 ==
LOC: MED/SURG 13:12
PROVIDERS: Family Medicine; ADMIT Physician Assistant
DX: J09.X1 Influenza due to identified novel influenza A virus with pneumonia (principal); E87.1 Hypo-osmolality and hyponatremia; N39.0 Urinary tract infection, site not specified; I10 Essential (primary) hypertension; I48.91 Unspecified atrial fibrillation; R09.02 Hypoxemia; F41.9 Anxiety disorder, unspecified; R29.810 Facial weakness; R21 Rash and other nonspecific skin eruption; E66.9 Obesity, unspecified; Z68.29 Body mass index [BMI] 29.0-29.9, adult; K59.00 Constipation, unspecified; R29.6 Repeated falls; Z79.01 Long term (current) use of anticoagulants; Z79.52 Long term (current) use of systemic steroids; Z86.73 Personal history of transient ischemic attack (TIA), and cerebral infarction without residual deficits; Z87.891 Personal history of nicotine dependence; Z90.49 Acquired absence of other specified parts of digestive tract; Z88.5 Allergy status to narcotic agent
CPT/HCPCS: J0696; J7512

== ENCOUNTER 2024-12-28 12:44 | Inpatient (IN) | payer MEDICARE, BC ==
[~2024-12-28] VITALS: Ht 170.2 cm; Wt 86.8 kg
[2024-12-28] MEDS ORDERED: Polyethylene Glycol 3350 Powder 17 GM PACKET PO PRN (13:00)
[2024-12-28] MEDS ORDERED: Acetaminophen 325 MG TAB PO PRN (13:00)
[2024-12-28] MEDS ORDERED: Famotidine 20 MG TAB PO PRN (13:15)
[2024-12-28] MEDS ORDERED: Albuterol 0.083% Nebule (2.5 MG/3 ML) IH PRN (13:15)
[2024-12-28] MEDS ORDERED: hydrOXYzine HCl 25 MG TAB PO PRN (13:15)
--- NOTE | 2024-12-28 15:00 | NUR ---
Pt admits as acute. Pt Ox4, VSS, afebrile. Reports R rib pain, especially with cough and deep breath. Continues on tele with cont pulse ox. Sats 95% on 3.5L O2 via NC. BP meds held this AM, SBP 120's this afternoon. IV to R wrist - SL. Using purewick for urination. Pt requesting 2A for transfer/ambulation r/t fear of falling.
[2024-12-28 15:45] VITALS: BP 129/66
[2024-12-28] MEDS ORDERED: predniSONE 1 MG TAB PO SCH (17:00)
[2024-12-28] MEDS ORDERED: Albuterol/Ipratropium 3 MG-0.5 MG/3 ML Neb Soln IH SCH (17:00)
[2024-12-28 20:59] VITALS: BP 118/56
[2024-12-28] MEDS ORDERED: Oseltamivir 75 MG CAP PO SCH (21:00)
[2024-12-28] MEDS ORDERED: Miconazole 2% Topical Powder BOTTLE TP SCH (21:00)
[2024-12-28] MEDS ORDERED: Polyethylene Glycol 3350 Powder 17 GM PACKET PO SCH (21:00)
[2024-12-28] MEDS ORDERED: Docusate Sodium 100 MG CAP PO SCH (21:00)
[2024-12-28] MEDS ORDERED: Amiodarone 200 MG TAB PO SCH (21:00)
[2024-12-28 23:10] VITALS: BP 145/60
[2024-12-29 03:41] VITALS: BP 131/60
[2024-12-29 07:11] LABS: ALBUMIN 3.1 g/dL (3.4-4.8)
[2024-12-29 07:12] LABS: CALCIUM 8.6 mg/dL (8.3-10.5)
[2024-12-29 07:13] LABS: BASO # 0.02 K/mm3 (0.02-0.10); EOS # 0.07 K/mm3 (0.04-0.40); EOS % 1.4 % (1.0-5.0); HEMATOCRIT 36.4 % (37.0-47.0); LYMPH# 0.82 K/mm3 (1.50-4.00); MEAN CELL VOLUME 93 fl (78-100); MEAN CORPUSCULAR HEMOGLOBIN 31 pg (27-31); MEAN CORPUSCULAR HGB CONC 33 g/dL (33-37); MEAN PLATELET VOLUME 10.2 fl (7.4-10.4); MONO # 0.47 K/mm3 (0.20-0.80); NEU # 3.64 K/mm3 (1.40-6.50); PLATELET COUNT 218 K/mm3 (130-400); RED BLOOD COUNT 3.92 M/mm3 (4.10-5.30); RED CELL DISTRIBUTION WIDTH 14.6 % (11.5-14.5)
[2024-12-29 07:15] LABS: TOTAL BILIRUBIN 0.5 mg/dL (0.2-1.2)
[2024-12-29 07:42] VITALS: BP 136/70
[2024-12-29] MEDS ORDERED: predniSONE 10 MG TAB PO SCH (09:00)
[2024-12-29] MEDS ORDERED: amLODIPine 5 MG TAB PO SCH (09:00)
[2024-12-29] MEDS ORDERED: cefTRIAXone 1 G in Water For Injection,Sterile 10 ML IV SCH (09:00)
[2024-12-29] MEDS ORDERED: Azithromycin 250 MG TAB PO SCH (09:00)
[2024-12-29] MEDS ORDERED: Losartan 50 MG TAB PO SCH (09:00)
[2024-12-29 11:17] VITALS: BP 110/63
[2024-12-29 15:16] VITALS: BP 107/53
[2024-12-29] MEDS ORDERED: Benzonatate 100 MG CAP PO SCH (15:21)
--- NOTE | 2024-12-29 18:11 | NUR ---
Pt Ox4, VSS. Cardiac meds given this AM per orders. Maintains O2 sats >92% on 3.5L via NC. Uses external catheter for urine, +BM. Continues with non-productive cough. Given tesslon pearls, reports cough improved. Up to recliner for meals.
[2024-12-29 20:06] VITALS: BP 128/67
[2024-12-29 23:30] VITALS: BP 127/55
[2024-12-30 03:01] VITALS: BP 150/64
--- NOTE | 2024-12-30 06:34 | NUR ---
CNAS ASSISTED PT TO BEDSIDE COMMODE FOR A BM THIS AM, PT WAS ABLE TO TOLERATE AMBULATION W/O WORSENING SOA, PT WAS ADVISED TO [place] PUREWICK ONLY AT BEDTIME GETTING UP DURING AM IS IMPORTANT TO RECOVERY. PT TOLERATED BEDSIDE COMMODE USE W/O NEED FOR MORE O2. PT CONTINUED ON 3.5L O2 PER NC. PT VERBILIZED WANT TO CONTINUE THE USE OF THE PUREWICK EVEN DURING DAY IT IS MORE CONVINIENT FOR HER. PT TOLERATED ACTIVITY WITH STAND BY ASSIST X1 W WALKER AND GAITBELT.
[2024-12-30 07:11] LABS: CALCIUM 8.7 mg/dL (8.3-10.5)
[2024-12-30 07:14] LABS: TOTAL BILIRUBIN 0.5 mg/dL (0.2-1.2)
[2024-12-30 07:30] LABS: ALBUMIN 3.1 g/dL (3.4-4.8)
[2024-12-30 07:34] VITALS: BP 110/69
[2024-12-30 07:34] LABS: BASO # 0.02 K/mm3 (0.02-0.10); EOS # 0.07 K/mm3 (0.04-0.40); EOS % 1.5 % (1.0-5.0); HEMATOCRIT 37.4 % (37.0-47.0); HEMOGLOBIN 12.3 g/dL (12.5-16.0); LYMPH# 1.04 K/mm3 (1.50-4.00); MEAN CELL VOLUME 93 fl (78-100); MEAN CORPUSCULAR HEMOGLOBIN 31 pg (27-31); MEAN CORPUSCULAR HGB CONC 33 g/dL (33-37); MEAN PLATELET VOLUME 10.8 fl (7.4-10.4); MONO # 0.45 K/mm3 (0.20-0.80); NEU # 2.97 K/mm3 (1.40-6.50); PLATELET COUNT 248 K/mm3 (130-400); RED BLOOD COUNT 4.02 M/mm3 (4.10-5.30); RED CELL DISTRIBUTION WIDTH 14.5 % (11.5-14.5); WHITE BLOOD COUNT 4.6 K/mm3 (4.8-10.8)
--- NOTE | 2024-12-30 08:28 | NUR ---
PT ALERT AND ORIENTED X4, PT RESTING IN BED UPON ENTRY. PT ASSESSSED AND ASSISTED TO THE RESTROOM. PT DOES NOT REPORT AND SHORTNESS OF AIR UPON ENTRY, BUT GETS VISIBLY SHORT OF AIR ON AMBULATION TO THE RESTROOM. PT ASSISSTED BY JIM PCT, PT SPO2 SENSOR FAULTY AT THIS TIME REPORTING HYPOXIA, BEDSIDE CHECK PERFORMED BY NUSRAT PCT FOUND IT TO BE 92 PERCENT, CENSOR REPLACED. PT RETURNED TO CHAIR FOR BREAKFAST, NO FURHTER NEEDS AT THIS TIME
[2024-12-30] MEDS ORDERED: methylPREDNISolone Sod Succ 125 MG/2 ML VIAL IV SCH (09:00)
[2024-12-30 11:13] VITALS: BP 126/67
--- NOTE | 2024-12-30 11:52 | NUR ---
DURING RETURN FROM BATHROOM TO PT CHAIR PT STOPS WALKING ASSISTED TO CHAIR AND REPORTS BACK PAIN, PCT LYNNE ASSISSTED PT THE FULL DISTANCE TO THE CHAIR BUT PT DID NOT WANT TO CONTINUE WALKING. FELICITY SILVERIO GOT PT TO CHAIR SAFELY, PT NOW IN CHAIR WITH CALL LIGHT IN REACH
[2024-12-30 15:14] VITALS: BP 104/56
--- NOTE | 2024-12-30 18:18 | NUR ---
PT COMPLETING BREATHING TREATMENT AT THIS TIME, PT STRUGGLING TO AMBULATE SHORT DISTANCES, NUSRAT BLEVINS AND KELVIN RN BOTH WITNESS PT STRUGGLE TO AMBULATE, THIS NURSE RECCOMENDS X2 ASSIST FOR SAFE TRANSFER
[2024-12-30 20:08] VITALS: BP 104/64
[2024-12-30 23:00] VITALS: BP 147/71
[2024-12-31 03:30] VITALS: BP 132/81
[2024-12-31 07:00] VITALS: BP 136/74
[2024-12-31 08:31] LABS: ALBUMIN 3.5 g/dL (3.4-4.8)
[2024-12-31 08:33] LABS: CALCIUM 9.5 mg/dL (8.3-10.5)
[2024-12-31 08:34] LABS: TOTAL PROTEIN 6.8 g/dL (6.2-8.1)
[2024-12-31 08:36] LABS: TOTAL BILIRUBIN 0.5 mg/dL (0.2-1.2)
[2024-12-31 10:29] LABS: HEMATOCRIT 39.4 % (37.0-47.0); HEMOGLOBIN 12.8 g/dL (12.5-16.0); MEAN CELL VOLUME 93 fl (78-100); MEAN CORPUSCULAR HEMOGLOBIN 30 pg (27-31); MEAN CORPUSCULAR HGB CONC 33 g/dL (33-37); PLATELET COUNT 324 K/mm3 (130-400); RED BLOOD COUNT 4.25 M/mm3 (4.10-5.30); RED CELL DISTRIBUTION WIDTH 14.4 % (11.5-14.5); WHITE BLOOD COUNT 5.3 K/mm3 (4.8-10.8)
[2024-12-31 10:51] LABS: LYMPHOCYTE 7 % (20-51); MONOCYTE 3 % (3-10); NEUTROPHILS 90 % (42-75)
[2024-12-31 11:20] VITALS: BP 112/61
--- NOTE | 2024-12-31 12:31 | NUR ---
PATEINT UP TO COMNODE AT BEDSIDE. PATIENT'S O2 NC 4L NC. PATIENT TEACHING DONE ON NEED TO TAKE DEEP BREATHS AND COUGH. PATIENT FOLLOWS INSTRUCTIONS WELL AND SM AMT LIGHT YELLOW SPUTUM NOTED.
[2024-12-31 15:23] VITALS: BP 122/59
--- NOTE | 2024-12-31 18:58 | NUR ---
REPORT GIVEN TO CHIP
[2024-12-31 19:00] VITALS: BP 105/54
--- NOTE | 2024-12-31 19:00 | NUR ---
Report received from Isaura FAUSTIN.
--- NOTE | 2024-12-31 20:30 | NUR ---
Patient resting in bed awake. Reports left shoulder achyness but declines tylenol. Alert and oriented x 4. Pleasant. HS meds all reviewed and given. Denies shortness of breath at this time. o2 on 4lpnc.
[2024-12-31 23:18] VITALS: BP 124/55
--- NOTE | 2025-01-01 01:58 | NUR ---
Patient rests with eyes closed. Sao2 92-93% 4 lpnc.
[2025-01-01 03:00] VITALS: BP 125/61
--- NOTE | 2025-01-01 05:00 | NUR ---
Patients o2 sat at times 88-89% on 4l pnc. Patient assisted up in bed. O2 line checked and sat probe replaced. Does IS. Encouraged deep breathing. sao2 93% on 4.5 Lpnc.
--- NOTE | 2025-01-01 05:19 | NUR ---
Patient reports she slept well this noc. 700mls clear yellow urine emptied from Airwarewick canister.
[2025-01-01 05:48] LABS: HEMATOCRIT 34.6 % (37.0-47.0); HEMOGLOBIN 11.3 g/dL (12.5-16.0); MEAN CELL VOLUME 93 fl (78-100); MEAN CORPUSCULAR HEMOGLOBIN 31 pg (27-31); MEAN CORPUSCULAR HGB CONC 33 g/dL (33-37); MEAN PLATELET VOLUME 10.1 fl (7.4-10.4); PLATELET COUNT 289 K/mm3 (130-400); RED BLOOD COUNT 3.71 M/mm3 (4.10-5.30); RED CELL DISTRIBUTION WIDTH 14.4 % (11.5-14.5); WHITE BLOOD COUNT 9.6 K/mm3 (4.8-10.8)
[2025-01-01 05:53] LABS: ALBUMIN 3.2 g/dL (3.4-4.8)
[2025-01-01 05:54] LABS: CALCIUM 8.8 mg/dL (8.3-10.5)
[2025-01-01 05:56] LABS: TOTAL PROTEIN 6.1 g/dL (6.2-8.1)
[2025-01-01 05:57] LABS: TOTAL BILIRUBIN 0.4 mg/dL (0.2-1.2)
[2025-01-01 06:13] LABS: LYMPHOCYTE 4 % (20-51); MONOCYTE 3 % (3-10); NEUTROPHILS 93 % (42-75); OVALOCYTES 1+; SCHISTOCYTES 1+
[2025-01-01 07:10] VITALS: BP 115/63
--- NOTE | 2025-01-01 07:30 | NUR ---
PT. GETTING UP TO CHAIR WITH STAFF AT THIS TIME. SOA WITH EXERTION. HOTEL DINING ROOM CASHIER REPORTS PT. O2 SAT LOWERS TO MID-80S. O2 TURNED FROM 4.5L TO 5L PER NC. NOTIFIED.
--- NOTE | 2025-01-01 08:15 | NUR ---
IN ROOM TO SEE PT. AT THIS TIME.
[2025-01-01 11:05] VITALS: BP 103/87
[2025-01-01] MEDS ORDERED: Tiotropium 2.5 MCG Respimat MDI IH SCH (11:15)
--- NOTE | 2025-01-01 13:12 | NUR ---
PT. O2 SAT DIPS INTO 80S ON AND OFF. ADJUSTED O2 UP TO 6L PER NC.
[2025-01-01 15:09] VITALS: BP 113/60
--- NOTE | 2025-01-01 16:40 | NUR ---
[facility] ARRIVED TO TRANSPORT PATIENT TO [facility] AT THIS TIME.
--- NOTE | 2025-01-01 16:50 | NUR ---
PATIENT DEPARTS WITH EMS AT THIS TIME FOR TRANSPORT TO [facility]
[2025-01-05] MEDS ORDERED: PAIN RELIEF EX500 MG PO (16:51)
[2025-01-05] MEDS ORDERED: ALBUTEROL S5 MG/1 ML IH (18:29)
[2025-01-05] MEDS ORDERED: [UNRECOGNIZED DRUG - OTHER] IH (18:30)
[2025-01-05] MEDS ORDERED: PULMICORT0.5 MG/2 M IH (18:32)
[2025-01-05] MEDS ORDERED: PERFOROMIS20 MCG/21 IH (18:34)
[2025-01-05] MEDS ORDERED: TAMIFLU 75MG75 MG PO (18:35)
[2025-01-05] MEDS ORDERED: PROTONIX TR40 M1 PO (18:36)
[2025-01-05] MEDS ORDERED: DEXAMETHASONE6 M1 PO (18:38)
== END 2025-01-01 16:49 | disposition short-term general hospital (02) | DRG 194 ==
LOC: MED/SURG 12:44
PROVIDERS: Family Medicine; ADMIT Family Medicine
DX: J10.00 Influenza due to other identified influenza virus with unspecified type of pneumonia (principal); N39.0 Urinary tract infection, site not specified; R53.1 Weakness; W19.XXXA Unspecified fall, initial encounter; F41.9 Anxiety disorder, unspecified; I10 Essential (primary) hypertension; Z86.73 Personal history of transient ischemic attack (TIA), and cerebral infarction without residual deficits; Z87.891 Personal history of nicotine dependence
CPT/HCPCS: A9270; J0696; J2919; J7512